=== PATIENT | female | born 1980 | race Caucasian/White ===

== ENCOUNTER 2018-01-18 01:37 | Emergency (ER) | payer BC, OTHER ==
[~2018-01-18] VITALS: Ht 162.6 cm; Wt 59.0 kg
[2018-01-18] MEDS ORDERED: IBUPROFEN 400400 M2 PO (01:50)
[2018-01-18] MEDS ORDERED: DIPHENHYDRAMINE PO (01:51)
[2018-01-18] MEDS ORDERED: KEFLEX500 M1 PO (02:45)
[2018-01-18] MEDS ORDERED: TRAMADOL 50 MG50 MG PO (02:45)
[2018-01-18] MEDS ORDERED: PEPCID20 MG PO (02:45)
[2018-01-18] MEDS ORDERED: PREDNISONE 20 M20 MG PO (02:45)
[2018-01-18] MEDS ORDERED: DOXYCYCLINE 10100 MG PO (03:01)
[2018-01-18 03:04] VITALS: BP 112/76
== END 2018-01-18 03:06 | disposition home or self-care (01) ==
LOC: ER 01:37
DX: T63.461A Toxic effect of venom of wasps, accidental (unintentional), initial encounter (principal); R11.2 Nausea with vomiting, unspecified; Z88.1 Allergy status to other antibiotic agents